=== PATIENT | female | born 1980 | race Caucasian/White ===

== ENCOUNTER → 2019-10-25 | Outpatient (CLI) | payer OTHER | END | disposition home or self-care (01) | LOC: PRENATAL 08:00 | DX: O28.1 Abnormal biochemical finding on antenatal screening of mother (principal); O09.511 Supervision of elderly primigravida, first trimester; O09.811 Supervision of pregnancy resulting from assisted reproductive technology, first trimester; Z36.82 Encounter for antenatal screening for nuchal translucency; Z3A.14 14 weeks gestation of pregnancy ==

== ENCOUNTER 2019-11-18 12:59 | Inpatient (IN) | payer OTHER ==
[~2019-11-18] VITALS: Ht 167.6 cm; Wt 68.0 kg
[2019-11-19] MEDS ORDERED: PRENATAL + DHA1 EAC1 PO (08:30)
[2019-11-19] MEDS ORDERED: SYNTHROID50 MCG PO (08:35)
== END 2019-11-20 09:21 | disposition home or self-care (01) | DRG 807 ==
LOC: PRENATAL 12:59 → LDR 11-19 06:55 → OB/GYN 11-20 01:10
PROVIDERS: ADMIT Obstetrics & Gynecology Maternal & Fetal Medicine
PROC: 10E0XZZ Delivery of Products of Conception, External Approach (ICD-10-PCS; principal; 2019-11-20)
PROC: 3E033VJ Introduction of Other Hormone into Peripheral Vein, Percutaneous Approach (ICD-10-PCS; 2019-11-20)
DX: O35.1XX0 Maternal care for (suspected) chromosomal abnormality in fetus, not applicable or unspecified (principal); Z37.1 Single stillbirth; Z3A.17 17 weeks gestation of pregnancy